=== PATIENT | female | born 1970 | race Caucasian/White ===

== ENCOUNTER → 2021-10-05 | Outpatient (CLI) | payer MEDICARE ==
[~2021-10-05] MED LIST: IOPAMIDOL 370 MG/ML 100 ML INFUS..BTL INJ ONE
[2021-10-05 16:51] LABS: CREATININE, SERUM 0.59 mg/dL (0.57-1.11)
== END ==
LOC: CT 15:59
PROVIDERS: ATTEND Internal Medicine
DX: R77.1 Abnormality of globulin (principal); Z85.9 Personal history of malignant neoplasm, unspecified
CPT/HCPCS: 36415; 70491; 82565; 84520; Q9967

== ENCOUNTER → 2022-10-04 | Outpatient (CLI) | payer MEDICARE | LOC: DX 10:28 | PROVIDERS: ATTEND Internal Medicine | DX: Z12.31 Encounter for screening mammogram for malignant neoplasm of breast (principal); M81.0 Age-related osteoporosis without current pathological fracture; C34.12 Malignant neoplasm of upper lobe, left bronchus or lung; R13.10 Dysphagia, unspecified | CPT/HCPCS: 71046; 74220; 77067; 77080 ==